=== PATIENT | male | born 1935 | race Hispanic/Latino ===

== ENCOUNTER 2024-11-16 10:11 | Outpatient (CLI) | payer OTHER | END 2024-11-16 10:12 | disposition home or self-care (01) | LOC: BICRAD 10:11 | PROVIDERS: ATTEND Nurse Practitioner Family | DX: M51.360 Other intervertebral disc degeneration, lumbar region with discogenic back pain only (principal); M47.814 Spondylosis without myelopathy or radiculopathy, thoracic region; M47.816 Spondylosis without myelopathy or radiculopathy, lumbar region | CPT/HCPCS: 72072; 72100 ==